=== PATIENT | female | born 1965 | race Caucasian/White ===

== ENCOUNTER 2019-07-01 07:23 | Day surgery (SDC) | payer OTHER ==
[2019-07-01] MEDS ORDERED: PROPOFOL 20 ML (08:52)
== END 2019-07-01 14:26 | disposition home or self-care (01) ==
LOC: GIL 07:23
DX: Z12.11 Encounter for screening for malignant neoplasm of colon (principal); K64.8 Other hemorrhoids; D12.3 Benign neoplasm of transverse colon
CPT/HCPCS: 45385; 88305